=== PATIENT | female | born 1965 | race Caucasian/White ===

== ENCOUNTER 2017-07-04 06:13 | Inpatient (IN) | payer OTHER ==
[2017-07-03 17:16] VITALS: BMI 29.1
[~2017-07-04] VITALS: Ht 152.4 cm; Wt 67.8 kg
[2017-07-04] VITALS (24 sets, daily range): BP systolic 115–158; BP diastolic 66–96; PULSE 60–86; RESP 11–23; Ht 152.4 cm; Wt 67.8 kg
[2017-07-04] MEDS ORDERED: LIDOCAINE 2% (SDV) 5 ML INJ ONE (07:00)
[2017-07-04] MEDS ORDERED: CEFAZOLIN 1 GM INJ ONE (07:00)
[2017-07-04] MEDS ORDERED: ACETAMINOPHEN 1000 MG/100 ML IVPB ONE (07:00)
[2017-07-04] MEDS ORDERED: PROPOFOL 200 MG INJ ONE (07:00)
[2017-07-04] MEDS ORDERED: ROPIVACAINE 0.5 % 30 ML VIAL ONE (07:39)
[2017-07-04] MEDS ORDERED: MIDAZOLAM 1 MG/ML 2 ML INJ ONE (07:43)
[2017-07-04] MEDS ORDERED: FENTAnyl 50 MCG/ML VIAL ONE (07:43)
--- NOTE | 2017-07-04 08:13 | HPN ---
Date/Time of Note Date/Time of Note DATE: 07/04/17 TIME: 08:13 Interval H&P Admission Note Pt. seen H&P reviewed: No system changes RAN ONOFRE MD Jul 04, 2017 08:13
[2017-07-04 08:22] LABS: ADD UMIC YES; UR ASCORBIC ACID NEGATIVE (NEGATIVE); UR BACTERIA FEW /HPF (NONE SEEN); UR BILIRUBIN (Dip) NEGATIVE (NEGATIVE); UR BLOOD (Dip) 2+ mg/dL (NEGATIVE); UR CLARITY SLIGHTLY CLOUDY (CLEAR); UR COLOR YELLOW (YELLOW); UR GLUCOSE (Dip) NEGATIVE (NEGATIVE); UR KETONES (Dip) NEGATIVE (NEGATIVE); UR LEUKOCYTE ESTERASE (Dip) 1+ Leu/ul (NEGATIVE); UR NITRITE (Dip) NEGATIVE (NEGATIVE); UR RBC 10 /HPF (0-5); UR SPECIFIC GRAVITY (Dip) 1.011 (1.003-1.030); UR SQUAMOUS EPITHELIAL CELL FEW /HPF (FEW); UR TOTAL PROTEIN (Dip) NEGATIVE (NEGATIVE); UR UROBILINOGEN (Dip) NEGATIVE (NEGATIVE)
[2017-07-04] MEDS ORDERED: OXYCODONE/ACETAMINOPHEN (5/325) TAB PO PRN ×3 (08:30→10:30)
[2017-07-04] MEDS ORDERED: DIPHENHYDRAMINE 50 MG INJ IV PRN (08:30)
[2017-07-04] MEDS ORDERED: HYDROmorphONE (0.2 MG/ML) 10ML SYG IV PRN ×3 (08:30)
[2017-07-04] MEDS ORDERED: FENTAnyl 50 MCG/ML VIAL IV PRN ×3 (08:30)
[2017-07-04] MEDS ORDERED: hydrALAzine 20 MG INJ IV PRN (08:30)
[2017-07-04] MEDS ORDERED: KETOROLAC 30 MG INJ IV PRN (08:30)
[2017-07-04] MEDS ORDERED: EPHEDrine SULFATE 50 MG/5 ML SYG IV PRN (08:30)
[2017-07-04] MEDS ORDERED: ONDANSETRON 4 MG INJ IV PRN (08:30)
[2017-07-04] MEDS ORDERED: MEPERIDINE 25 MG INJ IV PRN (08:30)
[2017-07-04] MEDS ORDERED: LABETALOL HCL 20MG INJ IV PRN (08:30)
[2017-07-04] MEDS: CEFAZOLIN 1 GM/50 ML (PMX) 50 ML IVPB SCH ×2 (08:40→18:36)
[2017-07-04] MEDS ORDERED: DEXAMETHASONE 4 MG/ML 1 ML INJ ONE (08:47)
[2017-07-04] MEDS ORDERED: POLYMYXIN/BACITRACIN 1L IRRIG IRR ONE (09:03)
[2017-07-04] MEDS ORDERED: ONDANSETRON 4 MG INJ ONE (10:02)
[2017-07-04] MEDS ORDERED: SOD CHLORIDE 0.9% 1,000 ML IV SCH (10:10)
[2017-07-04] MEDS: SOD CHLORIDE 0.9% 1,000 ML IV SCH ×2 (10:21→22:51)
[2017-07-04] MEDS ORDERED: HYDROCODONE/APAP (5/325) TAB PO PRN (10:30)
[2017-07-04] MEDS ORDERED: morphine 4 MG/ML VIAL IV PRN (10:30)
[2017-07-04] MEDS ORDERED: NACL 0.9% 3 ML SYG IV SCH ×2 (10:30)
--- NOTE | 2017-07-04 10:57 | SIPON ---
Date/Time of Note Date/Time of Note DATE: 07/04/17 TIME: 10:53 Operative Report Preoperative Diagnosis tear of rotator Lt.shoulder Postoperative Diagnosis same as preop Operation/Procedure Performed repair of rotator cuff Surgeon: RAN ONOFRE MD Anesthesia Type: general Estimated Blood Loss: 10 - 50 ml's Transfusion Required: no Specimen: none Grafts/Implants: none Complications: no RAN ONOFRE MD Jul 04, 2017 10:56
[2017-07-04] MEDS ORDERED: POLYMYXIN/BACITRACIN 1L IRRIG ONE (11:23)
[2017-07-05 02:00] VITALS: BP 117/66; PULSE 86; RESP 20
[2017-07-05] MEDS: CEFAZOLIN 1 GM/50 ML (PMX) 50 ML IVPB SCH (02:30)
[2017-07-05 08:03] VITALS: BP 134/82; RESP 18
[2017-07-05] MEDS: ENOXAPARIN 40 MG/0.4 ML SYG SC SCH (09:50)
[2017-07-05] MEDS: SOD CHLORIDE 0.9% 1,000 ML IV SCH ×2 (11:21→23:51)
[2017-07-05] MEDS: HYDROCODONE/APAP (10/325) TAB PO PRN ×3 (11:28→20:40)
[2017-07-05] MEDS: HYDROmorphONE 1 MG/ML SYG IV PRN ×2 (13:17→23:22)
[2017-07-05 14:00] VITALS: BP 120/71; RESP 18
--- NOTE | 2017-07-05 14:16 | OPR ---
DATE OF OPERATION: 07/04/2017 PREOPERATIVE DIAGNOSIS: 1. Tear of the rotator cuff, left shoulder. 2. Shoulder impingement syndrome. OPERATIVE PROCEDURE: 1. decompression of the left shoulder including partial acromionectomy and release of the coracoacromial ligament. 2. Repair of the rotator cuff. ANESTHESIA: General anesthesia. SURGEON: Michael Ramirez MD PROCEDURES AND FINDINGS: Under anesthesia, the patient was placed in position. The left shoulder and left upper extremity was prepped and draped in the usual fashion. The subacromial space was approached through a curved incision over the lateral aspect of the left acromion. After splitting the deltoid muscle, subacromial space was entered. Examination at this point revealed a severe shoulder impingement along with the obvious tear involving the rotator cuff. First, decompression of the subacromial space was carried out by carrying out the partial acromionectomy and release of the coracoacromial ligament. Further exploration again revealed an obvious tear involving the rotator cuff near its insertion into the lateral margin of the acromion at the termination of the humeral head. Using 2 anchors, rotator cuff was repaired. After the repair of the rotator cuff and after confirming satisfactory decompression, closure of the incision was carried out using 0 Vicryl for deltoid muscle, which was followed by closure of the subcuticular tissue with 2-0 Vicryl. Final skin closure was carried out with skin haja. The patient tolerated the entire procedure very well and was sent to the recovery room in good condition. Dictated By: In Imelda Ramirez MD /soco/bushra /Document#: [id number]
[2017-07-05 20:28] VITALS: BP 134/88; RESP 19
[2017-07-06 02:00] VITALS: BP 137/74; RESP 19
[2017-07-06] MEDS: HYDROCODONE/APAP (10/325) TAB PO PRN ×2 (05:20→11:27)
[2017-07-06 06:58] LABS: BASOPHIL # 0.1 10^3/ul (0.0-0.1); BASOPHILS % 0.5 % (0.0-2.0); EOSINOPHILS # 0.1 10^3/ul (0.0-0.5); EOSINOPHILS % 0.8 % (0.0-7.0); HEMATOCRIT 42.2 % (37.0-47.0); HEMOGLOBIN 13.8 g/dl (12.0-16.0); LYMPHOCYTES # 4.7 10^3/ul (0.8-2.9); LYMPHOCYTES % 35.9 % (15.0-51.0); MEAN CORPUSCULAR HEMOGLOBIN 30.7 pg (29.0-33.0); MEAN CORPUSCULAR HGB CONC 32.7 g/dl (32.0-37.0); MEAN CORPUSCULAR VOLUME 93.8 fl (82.0-101.0); MEAN PLATELET VOLUME 10.4 fl (7.4-10.4); MONOCYTE # 0.9 10^3/ul (0.3-0.9); MONOCYTES % 6.9 % (0.0-11.0); NEUTROPHILS % 55.4 % (39.0-77.0); PLATELET COUNT 414 10^3/UL (140-415); RED CELL DISTRIBUTION WIDTH 14.8 % (11.5-14.5); WHITE BLOOD COUNT 13.1 10^3/ul (4.8-10.8)
[2017-07-06 07:17] LABS: CREATININE 0.57 mg/dl (0.44-1.00)
[2017-07-06] MEDS: ENOXAPARIN 40 MG/0.4 ML SYG SC SCH (08:25)
[2017-07-06 09:00] VITALS: BP 138/85; RESP 18
== END 2017-07-06 11:40 | disposition home or self-care (01) | DRG 502 ==
LOC: SDS 06:13 → MS1 10:52
PROVIDERS: ADMIT Orthopaedic Surgery; ATTEND Orthopaedic Surgery
PROC: 0RNK0ZZ Release Left Shoulder Joint, Open Approach (ICD-10-PCS; 2017-07-04)
PROC: 0LM20ZZ Reattachment of Left Shoulder Tendon, Open Approach (ICD-10-PCS; principal; 2017-07-04 08:00)
DX: M75.102 Unspecified rotator cuff tear or rupture of left shoulder, not specified as traumatic (principal); M75.42 Impingement syndrome of left shoulder
CPT/HCPCS: 81001; 82565; 84520; 84703; 85025; C1713; J0131; J0690; J1100; J1170; J1650; J2250; J2405; J2795; J3010; J7030